=== PATIENT | female | born 1995 | race Caucasian/White ===

== ENCOUNTER 2016-08-22 20:08 | Emergency (ER) | payer SELFPAY ==
[~2016-08-22] VITALS: Ht 154.9 cm; Wt 78.7 kg
[~2016-08-22 20:08] MED LIST: ZOFR4TAB3 SL
[2016-08-22 20:12] VITALS: BP 103/69; PULSE 82; RESP 18; TEMP 98.1; O2SAT 98
[2016-08-22 20:32] LABS: BLOOD, URINE NEG (NEG); GLUCOSE,URINE NEG (NEG); KETONE, URINE NEG (NEG); NITRITE,URINE NEG (NEG)
[2016-08-22 20:39] LABS: METHOD OF COLLECTION CLEAN CATCH; URINE COLOR YELLOW (YELLW/STRAW)
[2016-08-22 20:40] LABS: BACTERIA, URINE FEW /hpf; COMMENT (UR) CULT NOT INDICATED; CULTURE IF INDICATED CULT NOT INDICATED; MUCUS URINE MANY /lpf (OCC); SQUAMOUS EPITHELIAL CELL URINE >8 /hpf (0-5)
--- NOTE | 2016-08-22 20:42 | PD ---
HPI Chief Complaint: Abdominal Pain Time Seen by Provider: 20:32 Travel History International Travel<30 days: No Contact w/Intl Traveler<30days: No Traveled to known affect area: No History of Present Illness HPI Patient is a 21-year-old female who presents to emergency room with complaints of abdominal pain. Patient reports that for the past week, she's had increased pain to her left lower quadrant. Patient reports that her pain has been intermittent in nature, reports that today, her pain has been constant. Patient reports that she thinks that "there is something wrong with my ovary." Patient denies history of ovarian cysts or history of ovarian torsion in the past. Patient denies any vaginal discharge or bleeding. Patient reports that she may be , she is not sure. Patient with no nausea vomiting. Patient with no fevers or chills. Patient with no constipation or diarrhea. Patient with no other complaints. Denies dysuria, urinary urgency or frequency. PFSH Past Medical History ADHD: Yes Weight (Kg): 3 Depression: Yes Cancer: No Cardiovascular Problems: No Developmental Delay: No Diabetes: No Diminished Hearing: No Headaches: Yes Psychiatric: Yes (Depression) Integumentary: Yes (MRSA/WOUND SEVERAL TIMES) Immunizations Current: No Migraines: Yes Seizures: No Thyroid Disease: No Ulcer: No Tetanus Vaccination: Unknown Influenza Vaccination: No ?: Not LMP: 07/29/16 : 2 Para: 1 Miscarriage: 1 Past Surgical History Appendectomy: No Section: No Cholecystectomy: No Tonsillectomy: Yes Other Surgery: Yes (TONSILECTOMY--AGE 6) Family History Family History: Negative Social History Alcohol Use: Yes (OCC) Tobacco Use: Yes (1 PPD) Substance Use: No Allergies-Medications (Allergen,Severity, Reaction): Coded Allergies: No Known Allergies (Verified , 08/22/16) Reported Meds & Prescriptions Reported Meds & Active Scripts Active Ibuprofen 600 Mg Tab 600 Mg PO Q6H PRN Macrobid (Nitrofurantoin Monoh/Nitrofur Macro) 100 Mg Cap 100 Mg PO BID 7 Days Review of Systems General / Constitutional: No: Fever Eyes: No: Visual changes HENT: No: Headaches Cardiovascular: No: Chest Pain or Discomfort Respiratory: No: Shortness of Breath Gastrointestinal: No: Nausea, Vomiting, Diarrhea, Abdominal Pain Genitourinary: Positive: Pelvic Pain, No: Urgency, Frequency, Dysuria, Hematuria, Discharge, Vaginal Bleeding Musculoskeletal: No: Pain Skin: No Rash Neurologic: No: Weakness Psychiatric: No: Depression Endocrine: No: Polydipsia Hematologic/Lymphatic: No: Easy Bruising Physical Exam Narrative GENERAL: nad, nontoxic SKIN: Warm and dry. HEAD: Atraumatic. Normocephalic. EYES: Pupils equal and round. No scleral icterus. No injection or drainage. ENT: No nasal bleeding or discharge. Mucous membranes pink and moist. NECK: Trachea midline. No JVD. CARDIOVASCULAR: Regular rate and rhythm. No murmur appreciated. RESPIRATORY: No accessory muscle use. Clear to auscultation. Breath sounds equal bilaterally. GASTROINTESTINAL: Abdomen soft, mildly tender to LLQ with no rebound or guarding on exam MUSCULOSKELETAL: No obvious deformities. No clubbing. No cyanosis. No edema. NEUROLOGICAL: Awake and alert. No obvious cranial nerve deficits. Motor grossly within normal limits. Normal speech. PSYCHIATRIC: Appropriate mood and affect; insight and judgment normal. Data Data Last Documented VS Vital Signs Date Time Temp Pulse Resp B/P Pulse Ox O2 Delivery O2 Flow Rate FiO2 08/22/16 21:46 70 16 96 Room Air 08/22/16 20:12 98.1 103/69 Orders Urinalysis - C+S If Indicated (08/22/16 20:21) Complete Blood Count With Diff (08/22/16 20:32) Comprehensive Metabolic Panel (08/22/16 20:32) Iv Access Insert/Monitor (08/22/16 20:32) Sodium Chloride 0.9% Flush (Ns Flush) (08/22/16 20:45) Ed Urine Pregnancytest Poc (08/22/16 20:32) Us Pelvis Comp W Dop Transvag (08/22/16 ) Morphine Inj (Morphine Inj) (08/22/16 21:30) Labs Laboratory Tests Test 08/22/16 08/22/16 20:20 20:40 Urine Collection Type CLEAN CATCH Urine Color YELLOW Urine Turbidity SLIGHT Urine pH 6.0 Urine Specific [place] 1.024 Urine Protein NEG mg/dL Urine Glucose (UA) NEG mg/dL Urine Ketones NEG mg/dL Urine Occult Blood NEG Urine Nitrite NEG Urine Bilirubin NEG Urine Leukocyte Esterase SMALL Urine WBC 3-5 /hpf Urine Squamous Epithelial >8 /hpf Cells Urine Bacteria FEW /hpf Urine Mucus MANY /lpf Microscopic Urinalysis Comment CULT NOT INDICATED White Blood Count 9.2 TH/MM3 Red Blood Count 4.29 MIL/MM3 Hemoglobin 12.4 GM/DL Hematocrit 36.8 % Mean Corpuscular Volume 85.7 FL Mean Corpuscular Hemoglobin 29.0 PG Mean Corpuscular Hemoglobin 33.8 % Concent Red Cell Distribution Width 12.5 % Platelet Count 201 TH/MM3 Mean Platelet Volume 9.3 FL Neutrophils (%) (Auto) 60.6 % Lymphocytes (%) (Auto) 29.5 % Monocytes (%) (Auto) 6.0 % Eosinophils (%) (Auto) 2.4 % Basophils (%) (Auto) 1.5 % Neutrophils # (Auto) 5.6 TH/MM3 Lymphocytes # (Auto) 2.7 TH/MM3 Monocytes # (Auto) 0.6 TH/MM3 Eosinophils # (Auto) 0.2 TH/MM3 Basophils # (Auto) 0.1 TH/MM3 CBC Comment DIFF FINAL Differential Comment Sodium Level 142 MEQ/L Potassium Level 3.9 MEQ/L Chloride Level 109 MEQ/L Carbon Dioxide Level 25.0 MEQ/L Anion Gap 8 MEQ/L Blood Urea Nitrogen 20 MG/DL Creatinine 0.68 MG/DL Estimat Glomerular Filtration 109 ML/MIN Rate Random Glucose 88 MG/DL Calcium Level 8.6 MG/DL Total Bilirubin 0.2 MG/DL Aspartate Amino Transf 11 U/L (AST/SGOT) Alanine Aminotransferase 18 U/L (ALT/SGPT) Alkaline Phosphatase 55 U/L Total Protein 7.5 GM/DL Albumin 4.2 GM/DL [facility] Medical Decision Making Medical Screen Exam Complete: Yes Emergency Medical Condition: Yes Interpretation(s) Vital Signs Date Time Temp Pulse Resp B/P Pulse Ox O2 Delivery O2 Flow Rate FiO2 08/22/16 20:12 98.1 82 18 103/69 98 Differential Diagnosis ovarian cyst, ovarian torsion, cervicitis, ectopic Narrative Course Patient is a 64-year-old female who presents to emergency room with complaints of left lower quadrant abdominal pain. Patient reports that she has been having the pain for the past week, reports that today, she has been having constant pain to her left lower quadrant. Patient reports that she is concerned that she may have something wrong with her ovaries. Patient denies any vaginal discharge or bleeding. No history of ovarian cysts in the past. Patient is smiling and laughing on exam. Patient is nontoxic and in no acute distress. Plan to order urine to evaluate for possible . Pelvic ultrasound ordered for evaluation of possible ovarian cyst vs torsion. cbc: wnl bmp: wnl ua: small leuk esterase, few bacteria, many mucous, neg nitrite, 3-5 wbc, pelvic US pending Pelvic ultrasound shows symmetrical blood flow to both ovaries, there is a 2.6cm cyst in the right ovary Patient reevaluated, patient with no abdominal pain at this time. Abdomen is soft, nontender, nondistended, no peritoneal signs. Signs and symptoms of when to return to emergency room reviewed with patient in detail. 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 At discharge, patient demanded script for narcotics. Patient reports that she is taking her child to an amusement park tomorrow and needs a script for "something stronger than ibuprofen or acetaminophen for pain." I did discuss with pt that it is not safe to prescribe her with narcotic pain medications for her abdominal pain as I do not want to mask any pathology that may be brewing. Patient furious with this, signs and symptoms of acute abdomen reviewed with patient in detail again. Diagnosis Primary Impression: Unspecified ovarian cyst, right side Additional Impressions: Abdominal pain Qualified Code: R10.12 - Left upper quadrant pain UTI (urinary tract infection) Qualified Code: N30.00 - Acute cystitis without hematuria Patient Instructions: General Instructions, Narcotic given in the ED Departure Forms: Tests/Procedures, Work Release Enter return to work date: Aug 24, 2016 Additional Instructions: Please follow-up with your factory assembler Bring your ultrasound report to your doctor's office for follow-up Please return to ER as needed Please take all antibiotics as prescribed Med/Other Pt SpecificInfo: Prescription(s) given Scripts Ibuprofen 600 Mg [id number] Mg PO Q6H PRN (Pain/Inflammation) #40 TAB Ref 0 Prov:Kirstie Dee DO 08/22/16 Nitrofurantoin Monohydrate Macrocrystals (Macrobid)100 Mg [id number] Mg PO BID 7 Days Ref 0 Prov:Kirstie Dee DO 08/22/16 Disposition: 01 DISCHARGE HOME Condition: Stable Kirstie Dee DO Aug 22, 2016 20:42
[2016-08-22] MEDS ORDERED: SODIUM CHLORIDE 0.9% FLUSH 5 ML FLUSH IVF PRN (20:45)
[2016-08-22 21:00] LABS: AUTOMATED NEUTROPHIL # 5.6 TH/MM3 (1.8-7.7); BASOPHIL # 0.1 TH/MM3 (0-0.2); BASOPHIL % 1.5 % (0.0-2.0); EOSINOPHIL # 0.2 TH/MM3 (0-0.4); EOSINOPHIL % 2.4 % (0.0-4.0); HEMATOCRIT 36.8 % (35.0-46.0); HEMO FLAGS DIFF FINAL; LYMPH % 29.5 % (9.0-44.0); LYMPHOCYTE # 2.7 TH/MM3 (1.0-4.8); MEAN CELL VOLUME 85.7 FL (80.0-100.0); MEAN CORPUSCULAR HGB CONC 33.8 % (32.0-36.0); NEUT % 60.6 % (16.0-70.0); PLATELET COUNT 201 TH/MM3 (150-450); RED BLOOD COUNT 4.29 MIL/MM3 (4.00-5.30); RED CELL DISTRIBUTION WIDTH 12.5 % (11.6-17.2); WHITE BLOOD COUNT 9.2 TH/MM3 (4.0-11.0)
[2016-08-22 21:18] LABS: CHLORIDE 109 MEQ/L (98-107); POTASSIUM 3.9 MEQ/L (3.5-5.1); SODIUM (NA) 142 MEQ/L (136-145)
[2016-08-22 21:22] LABS: ANION GAP 8 MEQ/L (5-15); BLOOD UREA NITROGEN 20 MG/DL (7-18)
[2016-08-22 21:25] LABS: ALT (GPT) 18 U/L (10-53); AST (GOT) 11 U/L (15-37); GLOMERULAR FILTRATION RATE 109 ML/MIN (>89)
[2016-08-22 21:27] LABS: TOTAL BILIRUBIN ADULT 0.2 MG/DL (0.2-1.0)
[2016-08-22 21:28] LABS: ALKALINE PHOSPHATASE 55 U/L (45-117)
[2016-08-22] MEDS ORDERED: MORPHINE SULFATE 4 MG/ML INJ IV PUSH ONE (21:30)
--- NOTE | 2016-08-22 21:43 | RADHPO ---
EXAM DATE/TIME: 08/23/2016 01:56 [facility] COMPARISON: No previous studies available for comparison. INDICATIONS : Pain. Rule out torsion. MEDICAL HISTORY : ADHD. Depression. Tobacco use. History of MRSA. SURGICAL HISTORY : Tonsillectomy. ENCOUNTER: Initial ACUITY: 1 week PAIN SCORE: 10/10 LOCATION: Bilateral pelvis MEASUREMENTS: UTERUS: 8.2 x 6.2 x 4.4 cm ENDOMETRIAL STRIPE: 20 mm RIGHT OVARY: 3.1 x 2.8 x 2.4 cm LEFT OVARY: 2.9 x 2.9 x 1.7 cm FINDINGS: UTERUS: The myometrium has homogeneous echotexture without mass. RIGHT OVARY: There is day 2.7 cm apparent cyst right ovary LEFT OVARY: Ovary contains no mass or significant cystic lesion. MISCELLANEOUS: No free fluid. CONCLUSION: Symmetrical blood flow to both ovaries, cyst on the right. Joaquín Hidalgo MD FACR on August 22, 2016 at 21:40 Board Certified Radiologist. This report was verified electronically.
[2016-08-22 21:46] VITALS: PULSE 70; RESP 16; O2SAT 96
[2016-08-22] MEDS ORDERED: IBUP-232 PO (21:46)
[2016-08-22] MEDS ORDERED: MACR100C2 PO (21:46)
[2016-08-22 21:59] VITALS: BP 110/60
== END 2016-08-22 22:21 | disposition home or self-care (01) ==
LOC: PHED 20:08
DX: N83.201 Unspecified ovarian cyst, right side (principal); F90.9 Attention-deficit hyperactivity disorder, unspecified type; F32.9 Major depressive disorder, single episode, unspecified; Z86.14 Personal history of Methicillin resistant Staphylococcus aureus infection; F17.210 Nicotine dependence, cigarettes, uncomplicated
CPT/HCPCS: 76830; 76856; 80053; 81001; 84703; 85025; 93975; 96374; 99284; J2270

== ENCOUNTER 2017-04-20 10:43 | Emergency (ER) | payer OTHER ==
[~2017-04-20] VITALS: Ht 154.9 cm; Wt 84.8 kg
[2017-04-20 11:26] VITALS: BP 100/62; PULSE 73; RESP 14; TEMP 98; O2SAT 97
== END 2017-04-20 13:15 | disposition left against medical advice (07) ==
LOC: PHED 10:43
DX: Z53.9 Procedure and treatment not carried out, unspecified reason (principal)
CPT/HCPCS: 99281

== ENCOUNTER 2017-07-08 21:53 | Emergency (ER) | payer OTHER ==
[~2017-07-08] VITALS: Ht 154.9 cm; Wt 82.9 kg
[2017-07-08 22:07] VITALS: BP 96/56; PULSE 75; RESP 16; TEMP 98.2; O2SAT 96
[2017-07-08] MEDS ORDERED: DIPH25CA PO (22:12)
[2017-07-08] MEDS ORDERED: FAMOTIDINE 20 MG TAB PO ONE (22:30)
[2017-07-08] MEDS ORDERED: predniSONE 50 MG TAB PO ONE (22:30)
[2017-07-08] MEDS ORDERED: PRED50 PO (22:31)
--- NOTE | 2017-07-08 22:31 | PD ---
HPI Chief Complaint: Allergic/Adverse Reaction Time Seen by Provider: 22:17 Travel History International Travel<30 days: No Contact w/Intl Traveler<30days: No Traveled to known affect area: No History of Present Illness HPI 22-year-old female here for evaluation of facial swelling, erythema, pruritus. Patient used a new lotion with a perfume on her face yesterday morning. By the evening time she had noticed significant facial swelling and pruritus as well as erythema. Symptoms seem to have worsened today. No tongue or lip swelling. No difficulty breathing or swallowing. She has no known allergies. PFSH Past Medical History ADHD: Yes Weight (Kg): 3 Depression: Yes Cancer: No Cardiovascular Problems: No Developmental Delay: No Diabetes: No Diminished Hearing: No Headaches: Yes Psychiatric: Yes (Depression) Integumentary: Yes (MRSA/WOUND SEVERAL TIMES) Immunizations Current: No Migraines: Yes Seizures: No Thyroid Disease: No Ulcer: No Tetanus Vaccination: < 5 Years Influenza Vaccination: No ?: Not LMP: 07 03 17 : 2 Para: 1 Miscarriage: 1 Past Surgical History Appendectomy: No Section: No Cholecystectomy: No Tonsillectomy: Yes Other Surgery: Yes (TONSILECTOMY--AGE 6) Social History Alcohol Use: Yes (OCC) Tobacco Use: Yes (1 PPD) Substance Use: No Allergies-Medications (Allergen,Severity, Reaction): Coded Allergies: No Known Allergies (Verified Adverse Reaction, Unknown, 07/08/17) Reported Meds & Prescriptions Reported Meds & Active Scripts Active Reported Diphenhydramine (Diphenhydramine HCl) 25 Mg Cap 25 Mg PO ONCE Review of Systems Except as stated in HPI: all other systems reviewed are Neg Physical Exam Narrative GENERAL: Well-developed, well-nourished, comfortable, eating potato chips, no apparent distress. SKIN: Moderate right lateral cheek swelling, right greater than left, with erythema and hive-like lesions, no skin breaks. HEAD: Skin exam as above. Normocephalic. EYES: Pupils equal and round. No scleral icterus. No injection or drainage. ENT: No nasal bleeding or discharge. Mucous membranes pink and moist. No intraoral lesions. No tongue or lip swelling. No drooling or stridor. Normal phonation. NECK: Trachea midline. No JVD. CARDIOVASCULAR: Regular rate and rhythm. RESPIRATORY: No accessory muscle use. Clear to auscultation. Breath sounds equal bilaterally. GASTROINTESTINAL: Abdomen soft, non-tender, nondistended. Hepatic and splenic margins not palpable. MUSCULOSKELETAL: No obvious deformities. No clubbing. No cyanosis. No edema. NEUROLOGICAL: Awake and alert. No obvious cranial nerve deficits. Motor grossly within normal limits. Normal speech. PSYCHIATRIC: Appropriate mood and affect; insight and judgment normal. Data Data Last Documented VS Vital Signs Date Time Temp Pulse Resp B/P (MAP) Pulse Ox O2 Delivery O2 Flow Rate FiO2 07/08/17 22:12 (69) 07/08/17 22:07 98.2 75 16 96 Orders Orders Prednisone (Deltasone) (07/08/17 22:30) Famotidine (Pepcid) (07/08/17 22:30) MDM Medical Decision Making Medical Screen Exam Complete: Yes Emergency Medical Condition: Yes Differential Diagnosis Contact dermatitis, allergic reaction Narrative Course Vital signs reviewed. The patient is overall very well-appearing. She has an apparent contact dermatitis to her bilateral cheeks with hive-like lesions in facial swelling. There is no tongue or lip swelling. No drooling or stridor. She has normal phonation. Plan is to have the patient discontinue the offending agent. She will be given a dose of prednisone here and will be given a prescription for prednisone 50 mg daily for the next 4 days. I have also advised that she take Benadryl for pruritus. No signs or symptoms of anaphylaxis. Patient is stable for discharge home and advised to follow-up with a primary care physician this week. She was informed on when to return to the emergency department. She verbalizes understanding and agreement with plan. Diagnosis Primary Impression: Contact dermatitis Qualified Codes: L23.2 - Allergic contact dermatitis due to cosmetics Referrals: [facility] 3 days Primary Care Physician 3 days Additional Instructions: Take prednisone as prescribed. Follow-up with a primary care physician this week. Return to the emergency department for worsening symptoms or any other concerns as discussed. Scripts Prednisone (Prednisone) 50 Mg Tab 50 MG PO DAILY for 4 Days, #4 TAB 0 Refills Prov: Frank Farley MD 07/08/17 Disposition: 01 DISCHARGE HOME Condition: Stable Frank Farley MD Jul 08, 2017 22:31
== END 2017-07-08 22:39 | disposition home or self-care (01) ==
LOC: PHEFT 21:53
DX: L23.2 Allergic contact dermatitis due to cosmetics (principal); F17.200 Nicotine dependence, unspecified, uncomplicated
CPT/HCPCS: 99283; J7512